=== PATIENT | female | born 1990 | race Two or more races ===

== ENCOUNTER 2022-12-31 12:24 | Emergency (ER) | payer MEDICAID, OTHER ==
[~2022-12-31] VITALS: Ht 157.5 cm; Wt 80.1 kg
[2022-12-31 15:08] VITALS: BP 115/63; PULSE 84; RESP 18; TEMP 98.1; O2SAT 97
[2022-12-31] MEDS ORDERED: ACETAMINOPHEN 500 MG TAB PO ONE (16:15)
[2022-12-31] MEDS ORDERED: KETOROLAC TROMETH 60MG/2ML VIAL IM ONE (16:15)
[2022-12-31] MEDS ORDERED: METH-1181 PO (16:27)
[2022-12-31] MEDS ORDERED: IBUP-1454 PO (16:27)
== END 2022-12-31 16:58 | disposition home or self-care (01) ==
LOC: ER 12:24
DX: M54.50 Low back pain, unspecified (principal); M79.18 Myalgia, other site; V49.9XXA Car occupant (driver) (passenger) injured in unspecified traffic accident, initial encounter; Y93.89 Activity, other specified; Y92.89 Other specified places as the place of occurrence of the external cause; Y99.8 Other external cause status
CPT/HCPCS: 96372; 99283; J1885

== ENCOUNTER 2023-09-09 12:53 | Emergency (ER) | payer MEDICAID, OTHER ==
[~2023-09-09] VITALS: Ht 157.5 cm; Wt 77.3 kg
[~2023-09-09 12:53] MED LIST: IBUP-1454 PO; METH-1181 PO
[2023-09-09 13:57] LABS: Urine Bacteria FEW /hpf (None Seen); Urine Blood Negative /uL (Negative); Urine Clarity Turbid (Clear); Urine Color Yellow (Yellow); Urine Mucus FEW (None Seen); Urine Protein, UAD Negative (Negative); Urine Specific Gravity 1.023 (1.001-1.035); Urine Urobilinogen Normal (Negative); Urine WBC 10 /hpf (0 - 5); Urine pH 5.5 (5.0-9.0)
[2023-09-09 14:49] VITALS: BP 127/85; PULSE 80; RESP 18; TEMP 99.1; O2SAT 100
[2023-09-09] MEDS ORDERED: NAP500T PO (16:18)
[2023-09-09] MEDS ORDERED: BACDST PO (16:18)
== END 2023-09-09 16:24 | disposition home or self-care (01) ==
LOC: ER 12:53
DX: N75.0 Cyst of Bartholin's gland (principal)
CPT/HCPCS: 56420; 81001; 81025